=== PATIENT | female | born 1935 | race Caucasian/White ===

== ENCOUNTER → 2016-10-30 | Outpatient (CLI) | payer MEDICARE, OTHER ==
--- NOTE | 2016-10-30 16:33 | RADRPT ---
PROCEDURE: XR Chest. CLINICAL INDICATION: Cough. TECHNIQUE: Single frontal view. COMPARISON: 10/11/2014. FINDINGS: The lungs are clear. The heart size is normal. There is no pleural effusion. There is no pneumothorax. IMPRESSION: 1. Normal chest radiograph. 2. No change from 10/11/2014. RPTAT: QQ .Dieter Steele MD, MD Date Time Electronically viewed and signed by .Dieter Steele MD, MD on 10/30/2016 16:33 .R/
== END | disposition home or self-care (01) ==
LOC: RAD 15:22
PROVIDERS: ATTEND Internal Medicine
DX: R05 Cough (principal)
CPT/HCPCS: 71010

== ENCOUNTER → 2018-09-23 | Outpatient (CLI) | END | disposition home or self-care (01) ==